=== PATIENT | male | born 2000 | race Caucasian/White ===

== ENCOUNTER 2024-03-11 07:25 | Emergency (ER) | payer SELFPAY ==
[2024-03-11 07:27] VITALS: BP 128/71; PULSE 82; RESP 17; TEMP 36.6; O2SAT 99
[2024-03-11 07:58] LABS: Basophils Percent Auto 0.7 % (0.2-1.2); Eosinophils Absolute Auto 0.1 K/mm3 (0-0.3); Eosinophils Percent Auto 1.8 % (0-4.4); Hematocrit 44.2 % (42.0-52.0); Hemoglobin 15.1 g/dL (14.0-18.0); Immature Granulocyte Absolute 0.02 K/mm3 (0.00-0.031); Immature Granulocyte Percent A 0.4 % (0-0.5); Lymphocytes Absolute Auto 1.99 K/mm3 (0.9-3.2); Mean Corpuscular HGB Conc 34.2 g/dl (32-36); Mean Corpuscular Volume 96.5 fl (80-100); Mean Platelet Volume 9.7 fl (7.4-10.4); Monocytes Absolute Auto 0.5 K/mm3 (0.1-0.6); Monocytes Percent Auto 9.4 % (2.6-8.5); Neutrophils Absolute Auto 2.9 K/mm3 (1.3-6.7); Neutrophils Percent Auto 51.7 % (45.5-73.1); Platelet Count Result 225 k/mm3 (150-375); Red Blood Count 4.58 M/mm3 (4.6-6.20); Red Cell Distribution Width 13.2 % (11.5-14.5); White Blood Count 5.5 K/mm3 (4.5-10.0)
--- NOTE | 2024-03-11 08:09 | ED.ALCOHOL ---
HPI - Alcohol General Chief Complaint: Alcohol Stated Complaint: ETOH & panic attack Time Seen by Provider: 03/11/24 08:03 Source: patient and RN notes reviewed Mode of arrival: EMS Limitations: intoxication History of Present Illness HPI narrative: Patient presents with report of alcohol intoxication. He has a history alcohol abuse and has been in various rehab facilities previously. he had told EMS that he has a history of panic attacks and uses alcohol to help with the symptoms. He denies any chest pain, shortness of breath, feeling panicked at the moment, hitting his head. he states he drank 4 twisted Tea tall boys. he is from [facility] [place] but visiting someone in [place]. He denied drug use. Related Data Allergies Allergy/AdvReac Type Severity Reaction Status Date / Time hydroxyzine AdvReac Rash Verified 03/11/24 07:43 Penicillins AdvReac Rash Verified 03/11/24 07:43 PMFSH Past Medical History Medical History Alcohol abuse Social History Social History (Updated 03/11/24 @ 14:56 by Migdalia Gonsalez MD) Tobacco type: e-cigarettes/vaping Exam Narrative: GENERAL: well-nourished, and in no acute distress. HEAD: Normocephalic, atraumatic. EYES: Non injected, non icteric ENT: Nares clear, no rhinorrhea or epistaxis. NECK: Supple. CHEST: Speaking in full sentences. No respiratory distress. HEART: Regular rate and rhythm. ABDOMEN: Soft, nondistended. : Patient has urinated on himself. EXTREMITIES: Normal range of motion. No lower extremity edema. SKIN: Warm, dry, no rash. NEURO: No focal deficits. Alert and oriented x3. Slurred but understandable speech. PSYCH: Congruent mood and affect. Course Vital Signs Vital signs: Vital Signs Temperature 97.8 F 03/11/24 07:27 Pulse Rate 82 03/11/24 07:27 Respiratory Rate 17 03/11/24 07:27 Blood Pressure 128/71 03/11/24 07:27 Pulse Oximetry 99 03/11/24 07:27 Oxygen Delivery Room Air 03/11/24 07:27 Temperature 97.8 F 03/11/24 07:27 Pulse Rate 73 03/11/24 12:44 Respiratory Rate 17 03/11/24 12:44 Blood Pressure 112/75 03/11/24 12:44 Pulse Oximetry 99 03/11/24 12:44 Oxygen Delivery Room Air 03/11/24 07:27 MDM - Alcohol MDM Narrative Medical decision making narrative: Patient presents with alcohol intoxication. He endorses drinking for twisted [employer] tall boys which he takes to help with his symptoms of a panic attack. Nevertheless he stated he had a panic attack overnight. In the emergency department they are afebrile with vital signs within normal limits. Alcohol level suggests that clinical sobriety will be achieved in approximately 6 hours. Will reassess patient at 2:00 p.m. unless interval events or improvement in presentation with safe dispo/transportation. 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 She provides collateral information that called her overnight and was panicked. She ordered an who per for him to take him to a rehab facility but he declined this. Patient is reassessed at approximately 3:00 p.m.. He is alert oriented, clinically sober. He states that he is not interested in rehab for alcohol and knows that his mother called an [employer] for him last night. He asks if he can charge his vape because he needs it. States he will only smoke in the bathroom. Informed him he can not use vape on hospital grounds. Stable for discharge. Differential Diagnosis Differential diagnosis: Likely alcohol intoxication Lab Data Attestation: I reviewed the patient's lab results. Lab results narrative: hyperglycemia without anion gap or acidosis 03/11/24 07:46 03/11/24 07:47 Labs: Lab Results 03/11/24 03/11/24 Range/Units 07:46 07:47 WBC 5.5 (4.5-10.0) K/mm3 RBC 4.58 L (4.6-6.20) M/mm3 Hgb 15.1 (14.0-18.0) g/dL Hct 44.2 (42.0-52.0) % MCV 96.5 (80-100) fl MCH 33.0 (26-34) pg MCHC 34.2 (32-36) g/dl RDW 13.2 (11.5-14.5) % Plt Count 225 (150-375) k/mm3 MPV 9.7 (7.4-10.4) fl Immature Gran % (Auto) 0.4 (0-0.5) % Neut % (Auto) 51.7 (45.5-73.1) % Lymph % (Auto) 36.0 (18.3-44.2) % [place] % (Auto) 9.4 H (2.6-8.5) % Eos % (Auto) 1.8 (0-4.4) % Baso % (Auto) 0.7 (0.2-1.2) % Lymph # (Auto) 1.99 (0.9-3.2) K/mm3 [place] # (Auto) 0.5 (0.1-0.6) K/mm3 Eos # (Auto) 0.1 (0-0.3) K/mm3 Baso # (Auto) 0.0 (0.0-0.1) K/mm3 Abs Immat Gran (auto) 0.02 (0.00-0.031) K/mm3 Absolute Neuts (auto) 2.9 (1.3-6.7) K/mm3 Absolute Nucleated RBC 0.000 (0.0-0.012) K/mm3 Nucleated RBC % 0.0 (0.0-0.2) % Sodium 139 (137-145) mmol/L Potassium 4.0 (3.4-5.0) mmol/L Chloride 99 (98-107) mmol/L Carbon Dioxide 30 (22-30) mmol/L Anion Gap 10 (4-12) mmol/L BUN 10 (9-20) mg/dL Creatinine 0.90 (0.7-1.3) mg/dL Estim Creat Clear Calc 132 ml/min Estimated GFR > 60 (59 - ) Glucose 133 H (65-110) mg/dL Calcium 9.1 (8.4-10.2) mg/dL Total Bilirubin 0.5 (0.2-1.3) mg/dL AST 30 (17-59) U/L ALT 32 (6-50) U/L Alkaline Phosphatase 106 (38-126) U/L Total Protein 8.0 (6.3-8.2) g/dL Albumin 4.3 (3.5-5.1) g/dL Urine Opiates Screen Negative (Negative) Urine Methadone Screen Negative (Negative) Ur Barbiturates Screen Negative (Negative) Ur Phencyclidine Scrn Negative (Negative) Ur Amphetamine Screen Negative (Negative) U Benzodiazepines Scrn Positive A (Negative) Urine Cocaine Screen Negative (Negative) U Cannabinoids Screen Positive A (Negative) Ethyl Alcohol 228 (<10) mg/dL Discharge Plan Discharge Clinical Impression: Alcoholic intoxication, Marijuana use, Alcohol abuse, Hyperglycemia, Panic attack Patient Disposition: Home, Self-Care Condition: Stable Instructions: Antibiotic Form, Alcohol Intoxication (ED), Abuse of Alcohol (ED), Cannabis Use Disorder (ED), Alcohol Dependence (ED), Panic Attack (ED) Additional Instructions: you are now clinically sober and stable for discharge. work to reduce or quit your alcohol use since it appears to be impacting your life in significant detrimental ways. follow-up with a primary care physician. If you do not have 1 the name of the doctors listed below. Return to the emergency department with new or worsening symptoms. Follow-up/Referrals: Yohan Martines MD [Physician] - ( Family practice) UNKNOWN,DOCTOR [Primary Care Provider] - Stand Alone Forms: Work/School Release IP Time of Disposition: 14:54
[2024-03-11 08:13] LABS: Alanine Aminotransferase 32 U/L (6-50); Albumin Level 4.3 g/dL (3.5-5.1); Alkaline Phosphatase 106 U/L (38-126); Anion Gap 10 mmol/L (4-12); Aspartate Amino Transferase 30 U/L (17-59); Bilirubin,Total 0.5 mg/dL (0.2-1.3); Blood Urea Nitrogen 10 mg/dL (9-20); Calcium 9.1 mg/dL (8.4-10.2); Carbon Dioxide 30 mmol/L (22-30); Chloride 99 mmol/L (98-107); Estimated CRCL calculation 132 ml/min; Estimated Glomerular Filt Rate > 60; Glucose 133 mg/dL (65-110); Sodium 139 mmol/L (137-145)
[2024-03-11 08:25] LABS: Amphetamine Screen Urine Negative (Negative); Barbiturate Screen Urine Negative (Negative); Benzodiazepines Screen Urine Positive (Negative); Cannabinoid Screen Urine Positive (Negative); Cocaine Screen Urine Negative (Negative); Methadone Screen Urine Negative (Negative); Opiate Screen Urine Negative (Negative); Phencyclidine Screen Urine Negative (Negative)
[2024-03-11 08:27] LABS: Ethanol 228 mg/dL (<10)
[2024-03-11 12:44] VITALS: BP 112/75; PULSE 73; RESP 17; O2SAT 99
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
== END 2024-03-11 13:35 | disposition home or self-care (01) ==
PROVIDERS: Emergency Provider Student in an Organized Health Care Education/Training Program
DX: F10.129 Alcohol abuse with intoxication, unspecified (principal); Y90.7 Blood alcohol level of 200-239 mg/100 ml; F12.90 Cannabis use, unspecified, uncomplicated; F41.0 Panic disorder [episodic paroxysmal anxiety]; R73.9 Hyperglycemia, unspecified; F17.290 Nicotine dependence, other tobacco product, uncomplicated
CPT/HCPCS: 36415; 80053; 80307; 82077; 85025; 99283